=== PATIENT | male | born 1965 | race Caucasian/White ===

== ENCOUNTER 2017-02-25 22:13 | Inpatient (IN) | payer MEDICARE, MEDICAID ==
[~2017-02-25] VITALS: Ht 182.9 cm; Wt 92.2 kg
[~2017-02-25 22:13] MED LIST: BENZ2TAB PO; DEPA500T3 PO; FENO54TA PO; HALO100I IM; PRED20 PO; SERT-132 PO; TRAZ100T4 PO; VENTAER INH; ZITH500T PO
[2017-02-25 22:30] VITALS: BP 123/63; PULSE 78; RESP 28; TEMP 101.8; O2SAT 92
[2017-02-25 22:32] VITALS: BP 123/96; PULSE 77; RESP 23; TEMP 101.8; O2SAT 97
[2017-02-25] MEDS ORDERED: SODIUM CHLOR 0.9% 1000 ML INJ 1,000 ML IV ONE ×2 (22:45)
[2017-02-25] MEDS ORDERED: ACETAMINOPHEN 325 MG TAB PO ONE (22:45)
[2017-02-25] MEDS ORDERED: SODIUM CHLORIDE 0.9% FLUSH 10 ML FLUSH IVF PRN (22:45)
--- NOTE | 2017-02-25 22:46 | PD ---
HPI Chief Complaint: Fever Time Seen by Provider: 22:23 Travel History International Travel<30 days: No Contact w/Intl Traveler<30days: No Traveled to known affect area: No History of Present Illness HPI 51yo M with PMH of schizoaffective disorder, bipolar disorder presents from alf with c/o cough, fever, and mild sob for 3 days. Denies any chest pain, n/v, abdominal pain, focal weakness or numbness. Pt had pneumonia 5 months ago. PFSH Past Medical History Arthritis: Yes (knees) Asthma: Yes (as a kid) Autoimmune Disease: No Bipolar Disorder: Yes Anxiety: No Depression: No Heart Rhythm Problems: No Cancer: No High Cholesterol: No Chemotherapy: No Chest Pain: No Congestive Heart Failure: No COPD: Yes Cerebrovascular Accident: No Diabetes: No Diminished Hearing: No Endocrine: No GERD: Yes Genitourinary: No Hiatal Hernia: No Immune Disorder: No Kidney Stones: No Musculoskeletal: Yes Neurologic: Yes Psychiatric: No Reproductive: Yes Respiratory: Yes Migraines: No Radiation Therapy: No Renal Failure: No Schizophrenia: Yes (Schizo Affective) Seizures: No Sickle Cell Disease: No Sleep Apnea: No Thyroid Disease: No Ulcer: No Tetanus Vaccination: Unknown Past Surgical History Surgical History: No Previous Surgery Abdominal Surgery: No AICD: No Arteriovenous Shunt: No Cardiac Surgery: No Ear Surgery: No Endocrine Surgery: No Eye Surgery: No Genitourinary Surgery: No Gynecologic Surgery: No Insulin Pump: No Joint Replacement: No Oral Surgery: No Pacemaker: No Thoracic Surgery: No Tonsillectomy: Yes Social History Alcohol Use: No Tobacco Use: Yes Substance Use: No Allergies-Medications (Allergen,Severity, Reaction): Coded Allergies: No Known Allergies (Unverified , 10/01/16) Reported Meds & Prescriptions Reported Meds & Active Scripts Active Ventolin Hfa 18 GM Inh (Albuterol Sulfate) 90 Mcg/Act Aer 2 Puff INH Q4-6H PRN Reported Trazodone (Trazodone HCl) 100 Mg Tab 100 Mg PO HS Sertraline (Sertraline HCl) 50 Mg Tab 50 Mg PO HS Haloperidol Decanoate Inj (Haloperidol Decanoate) 100 Mg/Ml Inj 100 Mg IM Q21D Fenofibrate 54 Mg Tab 54 Mg PO DAILY Depakote ER (Divalproex Sodium) 500 Mg Rosio 500 Mg PO HS Benztropine (Benztropine Mesylate) 2 Mg Tab 2 Mg PO HS Review of Systems Except as stated in HPI: all other systems reviewed are Neg Physical Exam Narrative GENERAL: 51yo M in mild distress. SKIN: Focused skin assessment warm/dry. HEAD: Atraumatic. Normocephalic. CARDIOVASCULAR: Regular rate and rhythm. No murmur appreciated. RESPIRATORY: No accessory muscle use. Clear to auscultation. Breath sounds equal bilaterally. GASTROINTESTINAL: Abdomen soft, non-tender, nondistended. No rebound tenderness or guarding. MUSCULOSKELETAL: No obvious deformities. No clubbing. No cyanosis. No edema. NEUROLOGICAL: Awake and alert. No obvious cranial nerve deficits. Motor grossly within normal limits. Normal speech. PSYCHIATRIC: Appropriate mood and affect; insight and judgment normal. Data Data Last Documented VS Vital Signs Date Time Temp Pulse Resp B/P Pulse Ox O2 Delivery O2 Flow Rate FiO2 02/26/17 00:22 Nasal Cannula 02/26/17 00:21 77 26 129/74 94 02/25/17 23:56 99.6 2 Orders Complete Blood Count With Diff (02/25/17 22:41) Basic Metabolic Panel (Bmp) (02/25/17 22:41) Act Partial Throm Time (Ptt) (02/25/17 22:41) Prothrombin Time / Inr (Pt) (02/25/17 22:41) Ckmb (Isoenzyme) Profile (02/25/17 22:41) Troponin I (02/25/17 22:41) Blood Culture (02/25/17 22:41) Iv Access Insert/Monitor (02/25/17 22:41) Electrocardiogram (02/25/17 22:41) Ecg Monitoring (02/25/17 22:41) Oximetry (02/25/17 22:41) Oxygen Administration (02/25/17 22:41) Chest, Single Ap (02/25/17 22:41) Sodium Chloride 0.9% Flush (Ns Flush) (02/25/17 22:45) Lactic Acid Sepsis Protocol (02/25/17 22:41) Sodium Chlor 0.9% 1000 Ml Inj (Ns 1000 M (02/25/17 22:45) Sodium Chlor 0.9% 1000 Ml Inj (Ns 1000 M (02/25/17 22:45) Acetaminophen (Tylenol) (02/25/17 22:45) CKMB (02/25/17 22:50) CKMB% (02/25/17 22:50) Arterial Blood Gas (Abg) (02/26/17 00:07) Methylprednisolone So Succ Inj (Solumedr (02/26/17 00:15) Albuterol-Ipratropium Neb (Duoneb Neb) (02/26/17 00:15) Labs Laboratory Tests Test 02/25/17 02/26/17 22:50 00:20 White Blood Count 6.6 TH/MM3 Red Blood Count 4.82 MIL/MM3 Hemoglobin 14.8 GM/DL Hematocrit 42.4 % Mean Corpuscular Volume 88.0 FL Mean Corpuscular Hemoglobin 30.7 PG Mean Corpuscular Hemoglobin 34.9 % Concent Red Cell Distribution Width 13.6 % Platelet Count 203 TH/MM3 Mean Platelet Volume 9.6 FL Neutrophils (%) (Auto) 73.1 % Lymphocytes (%) (Auto) 6.3 % Monocytes (%) (Auto) 17.8 % Eosinophils (%) (Auto) 0.2 % Basophils (%) (Auto) 2.6 % Neutrophils # (Auto) 4.8 TH/MM3 Lymphocytes # (Auto) 0.4 TH/MM3 Monocytes # (Auto) 1.2 TH/MM3 Eosinophils # (Auto) 0.0 TH/MM3 Basophils # (Auto) 0.2 TH/MM3 CBC Comment DIFF FINAL Differential Comment Prothrombin Time 11.5 SEC Prothromb Time International 1.0 RATIO Ratio Activated Partial 33.8 SEC Thromboplast Time Lactic Acid Level 1.0 mmol/L Sodium Level 135 MEQ/L Potassium Level 4.5 MEQ/L Chloride Level 103 MEQ/L Carbon Dioxide Level 21.9 MEQ/L Anion Gap 10 MEQ/L Blood Urea Nitrogen 12 MG/DL Creatinine 0.92 MG/DL Estimat Glomerular Filtration 87 ML/MIN Rate Random Glucose 79 MG/DL Calcium Level 8.4 MG/DL Total Creatine Kinase 202 U/L Creatine Kinase MB LESS THAN 0.5 NG/ML Troponin I LESS THAN 0.02 NG/ML Blood Gas Puncture Site RT RADIAL Blood Gas Patient Temperature 98.6 Blood Gas HCO3 19 mmol/L Blood Gas Base Excess -5.1 mmol/L Blood Gas Oxygen Saturation 87 % Arterial Blood pH 7.42 Arterial Blood Partial 30 mmHg Pressure CO2 Arterial Blood Partial 59 mmHG Pressure O2 Arterial Blood Oxygen Content 16.5 Vol % Arterial Blood 4.6 % Carboxyhemoglobin Arterial Blood Methemoglobin 0.6 % Blood Gas Hemoglobin 13.4 G/DL Oxygen Delivery Device ROOM AIR Blood Gas Inspired Oxygen 21 % [facility] Medical Decision Making Medical Screen Exam Complete: Yes Emergency Medical Condition: Yes Interpretation(s) EKG: NSR 83bpm. Poor baseline. No ST segment elevation or depression. Differential Diagnosis Pneumonia vs. COPD exacerbation vs. ACS Narrative Course 51yo M with sob, fever and cough. Labs reviewed, no leukocytosis. Lactic acid 1.0. Troponin negative. CXR showed no acute cardiopulmonary disease. Pt initially febrile and is now afebrile after acetaminophen. Pt reevaluated at bedside and feels better. Initially, he did not have wheezing but he does have expiratory wheezing bilaterally on exam and he is a chronic cig smoker so will give duonebs x3, methylprednisolone and reevaluate. ABG on room air showed O2 sat of 87% and pO2 of 59. Pt is hypoxic but is doing well on nasal cannula 2 L. Pt is still tachypneic in the high 20s and still has expiratory wheezing. Pt states he feels better. Discussed with [facility] hospitalist DEMI and accepted to Dr. Hernandez's service. Diagnosis Primary Impression: COPD exacerbation Admitting Information Admitting Physician Requests: Katie Roque DO Feb 25, 2017 22:46
--- NOTE | 2017-02-25 22:54 | RADRPT ---
EXAM DATE/TIME: 02/25/2017 22:39 [place] COMPARISON: CHEST SINGLE AP, October 01, 2016, 4:52. INDICATIONS : Cough and fever for the past three days. MEDICAL HISTORY : None. SURGICAL HISTORY : None. ENCOUNTER: Initial ACUITY: 3 days PAIN SCORE: 0/10 LOCATION: Bilateral chest FINDINGS: The lungs are clear without infiltrate, nodule, or mass. There is no appreciable pleural effusion fo r technique. Heart and mediastinum are unremarkable. CONCLUSION: No acute cardiopulmonary disease. Erick Magallanes MD on February 25, 2017 at 22:52 Board Certified Radiologist. This report was verified electronically.
[2017-02-25 23:18] VITALS: BP 111/62; PULSE 77; RESP 22; O2SAT 96
[2017-02-25 23:19] VITALS: O2SAT 96
[2017-02-25 23:37] LABS: AUTOMATED NEUTROPHIL # 4.8 TH/MM3 (1.8-7.7); BASOPHIL # 0.2 TH/MM3 (0-0.2); BASOPHIL % 2.6 % (0.0-2.0); EOSINOPHIL % 0.2 % (0.0-4.0); HEMATOCRIT 42.4 % (39.0-51.0); HEMO FLAGS DIFF FINAL; LYMPH % 6.3 % (9.0-44.0); LYMPHOCYTE # 0.4 TH/MM3 (1.0-4.8); MEAN CORPUSCULAR HEMOGLOBIN 30.7 PG (27.0-34.0); MEAN CORPUSCULAR HGB CONC 34.9 % (32.0-36.0); MONO % 17.8 % (0.0-8.0); NEUT % 73.1 % (16.0-70.0); PLATELET COUNT 203 TH/MM3 (150-450); RED BLOOD COUNT 4.82 MIL/MM3 (4.50-5.90); RED CELL DISTRIBUTION WIDTH 13.6 % (11.6-17.2); WHITE BLOOD COUNT 6.6 TH/MM3 (4.0-11.0)
[2017-02-25 23:38] VITALS: BP 119/62; PULSE 86; RESP 22; TEMP 99.6; O2SAT 96
[2017-02-25 23:53] LABS: APTT (PATIENT) 33.8 SEC (24.3-30.1); PROTHROMBIN TIME - PATIENT 11.5 SEC (9.8-11.6)
[2017-02-25 23:55] LABS: ANION GAP 10 MEQ/L (5-15); BICARBONATE 21.9 MEQ/L (21.0-32.0); BLOOD UREA NITROGEN 12 MG/DL (7-18); CHLORIDE 103 MEQ/L (98-107); CREATINE KINASE 202 U/L (39-308); GLOMERULAR FILTRATION RATE 87 ML/MIN (>89); SODIUM (NA) 135 MEQ/L (136-145)
[2017-02-25 23:56] VITALS: BP 119/62; PULSE 87; RESP 24; TEMP 99.6; O2SAT 97
[2017-02-25 23:56] LABS: POTASSIUM 4.5 MEQ/L (3.5-5.1)
[2017-02-26] VITALS (9 sets, daily range): BP systolic 123–143; BP diastolic 58–74; PULSE 62–77; RESP 16–26; TEMP 98.2–98.9; O2SAT 90–97
[2017-02-26 00:08] LABS: CKMB LESS THAN 0.5 NG/ML (0.5-3.6)
[2017-02-26] MEDS ORDERED: methylPREDNISolone SOD SUCC 125 MG/2 ML VIAL IVP ONE (00:15)
[2017-02-26] MEDS: RESP: ALBUTEROL 2.5 MG/IPRATROPIUM 0.5 MG NEB (SCH) INH (00:21)
[2017-02-26 00:32] LABS: BLOOD GAS BASE EXCESS -5.1 mmol/L (-2-2); BLOOD GAS CARBOXYHEMOGLOBIN 4.6 % (0-4); BLOOD GAS HCO3 19 mmol/L (22-26); BLOOD GAS METHEMOGLOBIN 0.6 % (0-2); BLOOD GAS O2 HGB SATURATION 87 % (90-100); BLOOD GAS OXYGEN CONTENT 16.5 Vol % (12.0-20.0); BLOOD GAS PCO2 30 mmHg (38-42); BLOOD GAS PO2 59 mmHG (61-120); BLOOD GAS TOTAL HGB 13.4 G/DL (12.0-16.0); CRITICAL VALUE YES; DRAW SITE RT RADIAL; FIO2 21 %; NUMBER OF ARTERIAL PUNCTURES 1; OXYGEN DEVICE ROOM AIR; STAT YES; TEMP CORR TO 98.6; ULNAR PULSE PRESENT
[2017-02-26] MEDS ORDERED: ACETAMINOPHEN 325 MG TAB PO PRN (02:30)
[2017-02-26] MEDS ORDERED: RESP: ALBUTEROL 2.5 MG/IPRATROPIUM 0.5 MG NEB (PRN) NEB (02:30)
[2017-02-26] MEDS ORDERED: ONDANSETRON HCL 4 MG/2 ML VIAL IVP PRN (02:30)
[2017-02-26] MEDS ORDERED: SODIUM CHLORIDE 0.9% FLUSH 10 ML FLUSH IV FLUSH PRN (02:30)
[2017-02-26] MEDS ORDERED: NALOXONE HCL 0.4 MG/ML AMP IV PRN (02:30)
[2017-02-26] MEDS: cefTRIAXone INJ 1,000 MG in SODIUM CHLORIDE 0.9% INJ 100 ML IV SCH (02:51)
[2017-02-26] MEDS: AZITHROMYCIN INJ 500 MG in SODIUM CHLOR 0.9% 250 ML INJ 250 ML IV SCH (02:52)
[2017-02-26] MEDS: ENOXAPARIN SODIUM 40 MG/0.4 ML SYRINGE SQ SCH (06:52)
[2017-02-26] MEDS: RESP: ALBUTEROL 2.5 MG/IPRATROPIUM 0.5 MG NEB (SCH) NEB ×4 (07:23→19:31)
[2017-02-26] MEDS: FENOFIBRATE 48 MG TAB PO SCH (09:24)
[2017-02-26] MEDS: methylPREDNISolone SOD SUCC 40 MG/1 ML VIAL IV PUSH SCH ×2 (09:24→21:28)
[2017-02-26] MEDS: SODIUM CHLORIDE 0.9% FLUSH 10 ML FLUSH IV FLUSH SCH ×2 (09:28→21:27)
--- NOTE | 2017-02-26 11:57 | MH ---
DATE OF ADMISSION: 02/26/2017 ADMITTING PHYSICIAN: MONTY BRANDON MD. CHIEF COMPLAINT: Shortness of breath and fever. HISTORY OF PRESENT ILLNESS: The patient is a 51-year-old white male with past medical history significant for schizoaffective disorder, bipolar disorder who presents from a detention with complaints of cough, fever and mild shortness of breath for three days. He denies any chest pain, nausea or vomiting, abdominal pain, focal weakness or numbness. Per the patient, he had pneumonia five months ago. In the emergency room, he was noted to have a temperature of 99.6 and arterial blood gases on room air showed oxygen sat of 87% and a p02 of 59. Because of the patient's symptoms and his abnormal labs, he has been admitted for further evaluation and treatment. PAST MEDICAL HISTORY: 1. Arthritis. 2. Asthma as a kid. 3. Bipolar disorder. 4. Arthralgias. PAST SURGICAL HISTORY: 1. Tonsillectomy. ALLERGIES: NO KNOWN ALLERGIES. SOCIAL HISTORY: Smokes half to one pack per day. Lives in a detention. FAMILY HISTORY: Unremarkable. ACTIVE MEDICATIONS: 1. Trazodone. 2. Sertraline. 3. Haloperidol. 4. Fenofibrate. 5. Depakote ER. 6. Benztropine. REVIEW OF SYSTEMS: Positive for shortness of breath, fever, cough. No chest pain. No palpitations. No nausea or vomiting or diarrhea. PHYSICAL EXAMINATION: GENERAL: A 51-year-old white male who is lying in bed comfortably in no acute distress at the time of examination. VITAL SIGNS: Blood pressure is 129/74, pulse is 77, respirations are 26, pulse oximetry is 94% on two liters. HEAD, EYES, EARS, NOSE, THROAT: Head is normocephalic and atraumatic. Pupils equal, round and reactive to light and accommodation. Extraocular movements are intact. Oral mucosa is moist. NECK: The neck is supple. No jugular venous distention. LUNGS: Clear to auscultation bilaterally. Breath sounds equal bilaterally. No accessory muscle use. CARDIOVASCULAR: S1 and S2 heard. Regular rate and rhythm. No murmur. No gallop. ABDOMEN: The abdomen is soft, nontender and nondistended. Bowel sounds heard in all the four quadrants. No organomegaly. EXTREMITIES: No cyanosis, congestion or edema. NEUROLOGIC: Cranial nerves II through XII are grossly intact. No focal deficits. PSYCHIATRIC: Appropriate mood and affect. DIAGNOSTIC STUDIES: Labs show a white blood cell count of 6.6, hemoglobin 14.8, hematocrit 42.4, platelets 203,000. Lactic acid is 1.0. Potassium is 4.5, BUN is 12, creatinine is 0.92. Troponin I is less than 0.02. ABGs show blood pH of 7.42, bicarbonate is 19, p02 is 59, pC02 is 13. IMAGING STUDIES: Chest x-ray shows no infiltrates. EKG is normal sinus rhythm at 83 beats. No S-T or T-wave changes. DIAGNOSTIC IMPRESSION: 1. COPD exacerbation. 2. Hypoxia. 3. History of asthma. 4. Schizoaffective disorder. PLAN: 1. The patient has been admitted. 2. Will start the patient on oxygen two liters via nasal cannula. 3. Keep the pulse oximetry above 92%. 4. Will start the patient on Rocephin and azithromycin. 5. Will do DuoNebs q. 6 hours PRN while awake. 6. Will continue the home medications as appropriate. 7. Will do DVT prophylaxis with Lovenox. 8. GI prophylaxis with proton pump inhibitor. 9. Will also start the patient on steroids. 10. Will monitor the CBC and the basic metabolic profile closely. 11. Will monitor the patient closely during the hospital stay. Further management depends upon the hospital course. The patient has presented with hypoxia and COPD exacerbations and needs IV antibiotics and IV steroids as well as DuoNeb treatments q. 6 hours. The patient meets inpatient criteria of three midnights. If not admitted, the risks of respiratory failure are there. Anticipate discharge to detention when stable. BRIELLE
[2017-02-26] MEDS: DIVALPROEX SODIUM E.R. 500 MG TAB PO SCH (21:28)
[2017-02-26] MEDS: traZODone HCL 100 MG TAB PO SCH (21:28)
[2017-02-26] MEDS: SERTRALINE HCL 50 MG TAB PO SCH (21:29)
[2017-02-26] MEDS: BENZTROPINE MESYLATE 2 MG TAB PO SCH (21:29)
--- NOTE | 2017-02-26 22:28 | EKG ---
Date Performed: 02/25/2017 Time Performed: 22:57:26 PTAGE: 51 years EKG: Sinus rhythm INDETERMINATE AXIS ABNORMAL ECG PREVIOUS TRACING : 12/11/2013 16.20 Compared to prior tracing no significant change DOCTOR: Nick Su Interpretating Date/Time 02/26/2017 22:27:23
[2017-02-27] VITALS (7 sets, daily range): BP systolic 117–153; BP diastolic 57–79; PULSE 65–79; RESP 17–21; TEMP 98–98.5; O2SAT 90–98
[2017-02-27] MEDS: cefTRIAXone INJ 1,000 MG in SODIUM CHLORIDE 0.9% INJ 100 ML IV SCH (03:35)
[2017-02-27] MEDS: AZITHROMYCIN INJ 500 MG in SODIUM CHLOR 0.9% 250 ML INJ 250 ML IV SCH (03:39)
[2017-02-27] MEDS: ENOXAPARIN SODIUM 40 MG/0.4 ML SYRINGE SQ SCH (06:02)
[2017-02-27] MEDS: RESP: ALBUTEROL 2.5 MG/IPRATROPIUM 0.5 MG NEB (SCH) NEB ×4 (07:54→20:06)
[2017-02-27] MEDS: FENOFIBRATE 48 MG TAB PO SCH (10:02)
[2017-02-27] MEDS: SODIUM CHLORIDE 0.9% FLUSH 10 ML FLUSH IV FLUSH SCH ×2 (10:03→21:52)
[2017-02-27] MEDS: methylPREDNISolone SOD SUCC 40 MG/1 ML VIAL IV PUSH SCH (10:03)
--- NOTE | 2017-02-27 12:32 | HHI.PR ---
Subjective Remarks resting in bed afebrile this am cough, dry, COPD tobacco abuse no family (Autumn Cosby) Objective Objective Results - Vital Signs Date Time Temp Pulse Resp B/P Pulse Ox O2 Delivery O2 Flow Rate FiO2 02/27/17 12:05 98.5 65 17 122/57 90 02/27/17 07:55 98.2 73 18 117/61 92 02/27/17 05:04 98.4 72 21 120/79 98 02/27/17 00:23 98.2 66 18 147/70 97 02/26/17 21:22 98.4 66 18 126/58 92 02/26/17 19:30 95 Nasal Cannula 2.00 02/26/17 16:49 98.9 70 20 129/60 91 I/O 02/26/17 02/26/17 02/26/17 02/27/17 02/27/17 02/27/17 07:00 15:00 23:00 07:00 15:00 23:00 Output Total 800 ml Balance -800 ml Output Urine Total 800 ml (Autumn Cosby) Result Diagram: 02/25/17224902/25/170 ROS General: Weakness (occasional, improved today), Other (10 point ROS done) Pulmonary: Cough, SOB (exertional), Other (copd) GI: BM (today) (Autumn Cosby) Physical Exam Physical Exam PHYSICAL EXAMINATION GENERAL: This is a well-developed, well-nourished male who appears to be in no acute distress. He is alert and awake, HEAD: Normocephalic without any lesion or mass noted. Facial features appear symmetric. OROPHARYNGEAL: Oropharynx without erythema or edema. NECK: Supple. No nuchal rigidity or lymphadenopathy. Trachea midline without deviation. CARDIAC: Regular rhythm, regular rate, S1 and S2 are heard. LUNGS: diminished to auscultation bilaterally. no wheeze, no rhonchi No use of accessory muscles on inspiration or expiration. ABDOMEN: Soft, nontender, no organomegaly or masses. Bowel sounds are heard in all four quadrants. No rebound. No guarding. EXTREMITIES: no edema. Pulses equal bilateral. NEUROLOGICAL: Patient mood and affect appropriate. No focal deficit SKIN:Warm and moist Objective Remarks Im better today (Autumn Cosby) A/P Assessment and Plan 1. COPD exacerbation. 2. Hypoxia. 3. History of asthma. 4. Schizoaffective disorder. PLAN: Will start the patient on oxygen two liters via nasal cannula. duonebs Keep the pulse oximetry above 92%. Rocephin and azithromycin. IV IV steroids decreased today Will eval SOB and needs in the am. DC planning possible in am. continue the home medications as appropriate. Will do DVT prophylaxis with Lovenox. GI prophylaxis with proton pump inhibitor. (Autumn Cosby) Assessment and Plan pt is seen & examined d/w PT d/w autumn bourgeois w above change abx to po taper steroids ss for d.c planning will f/u (Trinity William MD) Autumn Cosyb February 27, 2017 12:32 Trinity William MD February 27, 2017 17:33
[2017-02-27] MEDS: BENZTROPINE MESYLATE 2 MG TAB PO SCH (21:52)
[2017-02-27] MEDS: SERTRALINE HCL 50 MG TAB PO SCH (21:52)
[2017-02-27] MEDS: traZODone HCL 100 MG TAB PO SCH (21:52)
[2017-02-27] MEDS: DIVALPROEX SODIUM E.R. 500 MG TAB PO SCH (21:52)
[2017-02-28 04:40] VITALS: BP 116/66; PULSE 56; RESP 16; TEMP 98.8; O2SAT 91
[2017-02-28] MEDS: ENOXAPARIN SODIUM 40 MG/0.4 ML SYRINGE SQ SCH (06:09)
[2017-02-28 07:46] VITALS: BP 83/48; PULSE 69; RESP 17; TEMP 99.5; O2SAT 92
[2017-02-28 07:47] VITALS: O2SAT 94
[2017-02-28] MEDS: RESP: ALBUTEROL 2.5 MG/IPRATROPIUM 0.5 MG NEB (SCH) NEB (07:51)
--- NOTE | 2017-02-28 08:13 | HHI.PR ---
Subjective Remarks resting in bed Temp 99 5 low-grade Alert responds cough, dry, COPD O2 on continuous, taken off to room air for trial tobacco abuse no family (Autumn Cosby) Objective Objective Results - Vital Signs Date Time Temp Pulse Resp B/P Pulse Ox O2 Delivery O2 Flow Rate FiO2 02/28/17 07:47 94 21 02/28/17 07:46 99.5 69 17 83/48 92 02/28/17 04:40 98.8 56 16 116/66 91 02/27/17 20:07 93 Nasal Cannula 2.00 02/27/17 20:04 98.0 70 18 153/61 94 02/27/17 15:37 98.5 79 20 130/62 92 02/27/17 12:05 98.5 65 17 122/57 90 I/O 02/27/17 02/27/17 02/27/17 02/28/17 02/28/17 02/28/17 07:00 15:00 23:00 07:00 15:00 23:00 Intake Total 600 ml 800 ml 480 ml Output Total 300 ml Balance 300 ml 800 ml 480 ml Intake Oral 600 ml 800 ml 480 ml Output Urine Total 300 ml # Voids 0 4 3 # Bowel Movements 0 (Autumn Cosby) Result Diagram: 02/25/17224902/25/170 ROS General: Fatigue (mild), Other (10 point ROS done positives noted in a system assessment otherwise unremarkable) Pulmonary: Cough (dry hacky, tickle in back of throat), SOB (none) Neuro/MS: Other (calm affect) (Autumn Cosby) Physical Exam Physical Exam PHYSICAL EXAMINATION GENERAL: This is a well-developed, well-nourished male who appears to be in no acute distress, occasional cough. He is alert and awake, HEAD: Normocephalic without any lesion or mass noted. Facial features appear symmetric. OROPHARYNGEAL: Oropharynx without erythema or edema. NECK: Supple. No nuchal rigidity or lymphadenopathy. Trachea midline without deviation. CARDIAC: Regular rhythm, regular rate, S1 and S2 are heard. LUNGS: Clear to auscultation bilaterally. no wheeze, no rhonchi No use of accessory muscles on inspiration or expiration. Using O2 continuously ABDOMEN: Soft, nontender, no organomegaly or masses. Bowel sounds are heard in all four quadrants. No rebound. No guarding. EXTREMITIES: No edema. Pulses equal bilateral. NEUROLOGICAL: Patient mood and affect appropriate to verbal stimuli SKIN:Warm and moist Objective Remarks I hope I get to go home today (Autumn Cosby) A/P Assessment and Plan 1. COPD exacerbation. 2. Hypoxia. 3. History of asthma. 4. Schizoaffective disorder. PLAN: oxygen two liters via nasal cannula. Has been continuous, placed on room air this a.m. for evaluation duoneadalberto Keep the pulse oximetry above 92%, O2 sat having an right at 92 range Rocephin and azithromycin. IV IV steroids changed to PO Dry cough nonproductive DC planning evaluated for possible today No shortness of breath noted, lung sounds with air movement and no wheezing noted If O2 sat decreases may need to evaluate walk test Will do DVT prophylaxis with Lovenox. GI prophylaxis with proton pump inhibitor. Discussed With: Nurse, Family, Other (Dr. william, seen on his behalf) (Autumn Cosby) Assessment and Plan PT IS SEEN & EXAMINED feels much better breathing is much better mill cough /dry & non productive eager to go back "home" faint rhonchi on auscultation d/w pt d/w autumn medically stable for dc d/c back to half-way stop smoking cigarettes see see RADHA form f/u pcp (Trinity William MD) Autumn Cosby February 28, 2017 08:13 Trinity William MD February 28, 2017 09:08
[2017-02-28] MEDS ORDERED: methylPREDNISolone SOD SUCC 40 MG/1 ML VIAL IV PUSH SCH (09:00)
[2017-02-28] MEDS ORDERED: AZITHROMYCIN 250 MG TAB PO SCH (09:00)
[2017-02-28] MEDS: FENOFIBRATE 48 MG TAB PO SCH (09:00)
[2017-02-28] MEDS ORDERED: predniSONE 20 MG TAB PO SCH (09:00)
[2017-02-28 09:15] VITALS: BP 122/74
[2017-02-28] MEDS ORDERED: MEDR4PAK PO (09:17)
[2017-02-28] MEDS ORDERED: AZIT250T3 PO (09:17)
[2017-02-28] MEDS ORDERED: BENZ100 PO (09:17)
--- NOTE | 2017-02-28 16:14 | HHI.DS ---
Discharge Summary Admission Date Feb 26, 2017 at 11:27 Discharge Date: February 28, 2017 Admitting Diagnosis COPD exacerbation Brief History The patient was a 51-year-old white male with past medical history significant for schizoaffective disorder, bipolar disorder who presented from a skilled nursing with complaints of cough, fever and mild shortness of breath for three days. He denied any chest pain, nausea or vomiting, abdominal pain, focal weakness or numbness. Per the patient, he had pneumonia five months ago. CBC/BMP: 02/25/17 2250 02/25/17 2250 Significant Findings Laboratory Tests Test 02/25/17 02/26/17 22:50 00:20 Neutrophils (%) (Auto) 73.1 % (16.0-70.0) Lymphocytes (%) (Auto) 6.3 % (9.0-44.0) Monocytes (%) (Auto) 17.8 % (0.0-8.0) Basophils (%) (Auto) 2.6 % (0.0-2.0) Lymphocytes # (Auto) 0.4 TH/MM3 (1.0-4.8) Monocytes # (Auto) 1.2 TH/MM3 (0-0.9) Activated Partial 33.8 SEC Thromboplast Time (24.3-30.1) Sodium Level 135 MEQ/L (136-145) Estimat Glomerular Filtration 87 ML/MIN (>89) Rate Calcium Level 8.4 MG/DL (8.5-10.1) Creatine Kinase MB LESS THAN 0.5 NG/ML (0.5-3.6) Troponin I LESS THAN 0.02 NG/ML (0.02-0.05) Blood Gas HCO3 19 mmol/L (22-26) Blood Gas Base Excess -5.1 mmol/L (-2-2) Blood Gas Oxygen Saturation 87 % (90-100) Arterial Blood Partial 30 mmHg (38-42) Pressure CO2 Arterial Blood Partial 59 mmHG Pressure O2 (61-120) Arterial Blood 4.6 % (0-4) Carboxyhemoglobin PE at Discharge GENERAL: This was a well-developed, well-nourished male who appeared to be in no acute distress, occasional cough. He was alert and awake, HEAD: Normocephalic without any lesion or mass noted. Facial features appear symmetric. OROPHARYNGEAL: Oropharynx without erythema or edema. NECK: Supple. No nuchal rigidity or lymphadenopathy. Trachea midline without deviation. CARDIAC: Regular rhythm, regular rate, S1 and S2 are heard. LUNGS: Clear to auscultation bilaterally. no wheeze, no rhonchi No use of accessory muscles on inspiration or expiration. Using O2 continuously ABDOMEN: Soft, nontender, no organomegaly or masses. Bowel sounds are heard in all four quadrants. No rebound. No guarding. EXTREMITIES: No edema. Pulses equal bilateral. NEUROLOGICAL: Patient mood and affect appropriate to verbal stimuli SKIN:Warm and moist Hospital Course In the emergency room, he was noted to have a temperature of 99.6 and arterial blood gases on room air showed oxygen sat of 87% and a p02 of 59. Because of the patient's symptoms and his abnormal labs, he has been admitted for further evaluation and treatment. These are the diagnoses that were used to treat the patient during this brief hospital stay. 1. COPD exacerbation. 2. Hypoxia. 3. History of asthma. 4. Schizoaffective disorder. PLAN of care included oxygen two liters via nasal cannula. Has been continuous, placed on room air this a.m. of discharge for evaluation duonebs every 6 as needed Keep the pulse oximetry above 92%, O2 sat having an right at 92 range Rocephin and azithromycin. IV initiated on admission and throughout hospital stay, up until day of discharge IV steroids were initially started on day of admission , but changed to PO day of discharge Dry cough nonproductive, throughout hospital stay. Vital signs were monitored every 4 throughout hospital stay, any abnormals were noted and treated Home meds were reconciled, On day of discharge No shortness of breath noted, lung sounds with air movement and no wheezing noted If O2 sat decreases may need to evaluate walk test, but patient remained stable with O2 sat Will do DVT prophylaxis with Lovenox. GI prophylaxis with proton pump inhibitor. Throughout hospital stay and margo also saw patient a.m. of discharge PT IS SEEN & EXAMINED feels much better breathing is much better mill cough /dry & non productive eager to go back "home" faint rhonchi on auscultation d/w pt d/w autumn medically stable for dc d/c back to skilled nursing stop smoking cigarettes see MRS see INTERMEDIATE form Pt Condition on Discharge: Stable Discharge Disposition: ACLF/INTERMEDIATE Discharge Instructions DIET: Follow Instructions for: As Tolerated, No Restrictions Additional Diet Instructions: no smoking cigarettes Fluid Restrictions: none Activities you can perform: Regular-No Restrictions Follow up Referrals: PCP Follow-up - 1 Week New Medications: Benzonatate (Tessalon Perles) 100 Mg Cap 100 MG PO TID PRN COUGH #20 Ref 0 CAP Methylprednisolone Dosepak (Medrol Dosepak) 4 Mg Dspk 4 MG PO DIRECTED Per Pharmacist direction #1 Ref 0 DSPK Azithromycin (Azithromycin) 250 Mg Tab 500 MG PO DAILY brochitis #10 TAB Continued Medications: Albuterol 18 GM Inh (Ventolin Hfa 18 GM Inh) 90 Mcg/Act Aer 2 PUFF INH Q4-6H PRN SHORTNESS OF BREATH #1 Ref 0 INHALER Benztropine (Benztropine) 2 Mg Tab 2 MG PO HS #30 Ref 0 TAB Divalproex ER (Depakote ER) 500 Mg Rosio 500 MG PO HS Control Seizures #30 Ref 0 TAB Fenofibrate (Fenofibrate) 54 Mg Tab 54 MG PO DAILY #30 Ref 0 TAB Haloperidol Decanoate Inj (Haloperidol Decanoate Inj) 100 Mg/Ml Inj 100 MG IM Q21D Schizophrenia #1 Ref 0 VIAL Sertraline (Sertraline) 50 Mg Tab 50 MG PO HS #30 Ref 0 TAB Trazodone (Trazodone) 100 Mg Tab 100 MG PO HS Control Depression #30 Ref 0 TAB Autumn Cosby February 28, 2017 16:14
== END 2017-02-28 10:31 | disposition home or self-care (01) | DRG 192 ==
LOC: NEPE 22:13 → NEDA 02-26 01:24 → NEPGCP 02-26 03:55 → OBSVTOIN 02-26 11:27
PROVIDERS: ADMIT Family Medicine; ATTEND Family Medicine
DX: J44.1 Chronic obstructive pulmonary disease with (acute) exacerbation (principal); F25.9 Schizoaffective disorder, unspecified; F31.9 Bipolar disorder, unspecified; J45.909 Unspecified asthma, uncomplicated; K21.9 Gastro-esophageal reflux disease without esophagitis; R09.02 Hypoxemia; F17.210 Nicotine dependence, cigarettes, uncomplicated; Z87.01 Personal history of pneumonia (recurrent)
CPT/HCPCS: 36600; 71010; 80048; 82550; 82552; 82805; 82948; 83605; 84484; 85025; 85610; 85730; 87040; 93005; 94640; 94664; 96361; 96374; J0456; J0696; J1650; J2920; J2930; J7030; J7050; J7512

== ENCOUNTER 2017-07-29 16:58 | Observation (INO) | payer MEDICARE, MEDICAID ==
[~2017-07-29] VITALS: Ht 182.9 cm; Wt 95.0 kg
[~2017-07-29 16:58] MED LIST changes: +AZIT250T3 PO; +BENZ100 PO; +MEDR4PAK PO; -PRED20 PO; -ZITH500T PO
[2017-07-29 17:00] VITALS: BP 163/73; PULSE 82; RESP 15; TEMP 99.2; O2SAT 98
[2017-07-29 17:17] VITALS: O2SAT 98
--- NOTE | 2017-07-29 17:23 | PD ---
HPI Chief Complaint: Respiratory Symptoms Time Seen by Provider: 17:14 Travel History International Travel<30 days: No Contact w/Intl Traveler<30days: No Traveled to known affect area: No History of Present Illness HPI 51-year-old male presents to the emergency department for evaluation of cough, shortness of breath that started approximately 1.5 weeks ago. Patient has history of schizoaffective disorder, COPD. He lives in a facility due to his schizoaffective disorder. Patient states that he is currently on azithromycin for a sinus infection. He is on day 3. He states he ran a fever last night of 101. He has not had any fever since. No abdominal pain, nausea, vomiting, diarrhea. No history DVT/PE. No leg edema. No hemoptysis. PFSH Past Medical History Arthritis: Yes (knees) Asthma: Yes (as a kid) Autoimmune Disease: No Bipolar Disorder: Yes Anxiety: No Depression: No Heart Rhythm Problems: No Cancer: No High Cholesterol: No Chemotherapy: No Chest Pain: No Congestive Heart Failure: No COPD: Yes Cerebrovascular Accident: No Diabetes: No Diminished Hearing: No Endocrine: No Gastrointestinal Disorders: Yes GERD: Yes Genitourinary: No Headaches: Yes Hiatal Hernia: No Immune Disorder: No Kidney Stones: No Musculoskeletal: Yes Neurologic: Yes Psychiatric: No Reproductive: Yes Respiratory: Yes (COPD) Migraines: No Radiation Therapy: No Renal Failure: No Schizophrenia: Yes (Schizo Affective) Seizures: No Sickle Cell Disease: No Sleep Apnea: No Thyroid Disease: No Ulcer: No Past Surgical History Abdominal Surgery: No AICD: No Arteriovenous Shunt: No Cardiac Surgery: No Ear Surgery: No Endocrine Surgery: No Eye Surgery: No Genitourinary Surgery: No Gynecologic Surgery: No Insulin Pump: No Joint Replacement: No Oral Surgery: No Pacemaker: No Thoracic Surgery: No Tonsillectomy: Yes Other Surgery: Yes ("fatty tissue removed from scrotum" ) Social History Alcohol Use: No Tobacco Use: Yes Substance Use: No Allergies-Medications (Allergen,Severity, Reaction): Coded Allergies: pineapple (Unverified Allergy, Severe, Swelling, 06/14/17) throat mouth and tongue swelling. Reported Meds & Prescriptions Reported Meds & Active Scripts Active Reported Mapap (Acetaminophen) 325 Mg Tab 325 Mg PO TID PRN Ventolin Hfa 18 GM Inh (Albuterol Sulfate) 90 Mcg/Act Aer 2 Puff INH Q4-6H PRN Azithromycin 250 Mg Tab 250 Mg PO DIRECTED Take 2 tabs (500 mg) on day 1 then 1 tab daily x 4 days. Trazodone (Trazodone HCl) 100 Mg Tablet 100 Mg PO HS Benztropine (Benztropine Mesylate) 0.5 Mg Tab 2 Mg PO HS Anoro Ellipta Inh (Umeclidinium/Vilanterol) 62.5-25 Mcg/Act Aero 1 Puff INH DAILY Sertraline (Sertraline HCl) 50 Mg Tab 50 Mg PO HS Haloperidol Decanoate Inj (Haloperidol Decanoate) 100 Mg/Ml Inj 100 Mg IM Q21D Fenofibrate 54 Mg Tab 54 Mg PO DAILY Depakote ER (Divalproex Sodium) 500 Mg Rosio 1,500 PO HS Review of Systems Except as stated in HPI: all other systems reviewed are Neg Physical Exam Narrative GENERAL: Well-nourished, well-developed male patient, afebrile. SKIN: Focused skin assessment warm/dry. HEAD: Normocephalic. Atraumatic. EYES: No scleral icterus. No injection or drainage. NECK: Supple, trachea midline. No JVD or lymphadenopathy. CARDIOVASCULAR: Regular rate and rhythm without murmurs, gallops, or rubs. RESPIRATORY: Breath sounds equal bilaterally. No accessory muscle use. Lungs sounds with expiratory wheezes noted. Patient has dry cough noted GASTROINTESTINAL: Abdomen soft, non-tender, nondistended. MUSCULOSKELETAL: No cyanosis, or edema. BACK: Nontender without obvious deformity. No CVA tenderness. Data Data Last Documented VS Vital Signs Date Time Temp Pulse Resp B/P (MAP) Pulse Ox O2 Delivery O2 Flow Rate FiO2 07/29/17 17:17 106 17 98 Room Air 07/29/17 17:00 99.2 163/73 (103) Orders Orders Complete Blood Count With Diff (07/29/17 17:21) Basic Metabolic Panel (Bmp) (07/29/17 17:21) Magnesium (Mg) (07/29/17 17:21) Ckmb (Isoenzyme) Profile (07/29/17 17:21) Troponin I (07/29/17 17:21) Iv Access Insert/Monitor (07/29/17 17:21) Electrocardiogram (07/29/17 17:21) Ecg Monitoring (07/29/17 17:21) Oximetry (07/29/17 17:21) Oxygen Administration (07/29/17 17:21) Chest, Single Ap (07/29/17 17:21) Sodium Chloride 0.9% Flush (Ns Flush) (07/29/17 17:30) Methylprednisolone So Succ Inj (Solumedr (07/29/17 17:30) Albuterol-Ipratropium Neb (Duoneb Neb) (07/29/17 17:30) Guaifen-Dm 200-20 Mg/10 Ml Liq (Robituss (07/29/17 17:30) Valproic Acid (Depakene) (07/29/17 17:21) CKMB (07/29/17 17:25) CKMB% (07/29/17 17:25) Admit Order (Ed Use Only) (07/29/17 18:55) Labs Laboratory Tests Test 07/29/17 17:25 White Blood Count 8.5 TH/MM3 Red Blood Count 4.84 MIL/MM3 Hemoglobin 15.0 GM/DL Hematocrit 43.7 % Mean Corpuscular Volume 90.4 FL Mean Corpuscular Hemoglobin 31.1 PG Mean Corpuscular Hemoglobin Concent 34.4 % Red Cell Distribution Width 13.4 % Platelet Count 221 TH/MM3 Mean Platelet Volume 8.7 FL Neutrophils (%) (Auto) 66.7 % Lymphocytes (%) (Auto) 19.3 % Monocytes (%) (Auto) 12.5 % Eosinophils (%) (Auto) 0.2 % Basophils (%) (Auto) 1.3 % Neutrophils # (Auto) 5.7 TH/MM3 Lymphocytes # (Auto) 1.6 TH/MM3 Monocytes # (Auto) 1.1 TH/MM3 Eosinophils # (Auto) 0.0 TH/MM3 Basophils # (Auto) 0.1 TH/MM3 CBC Comment DIFF FINAL Differential Comment Blood Urea Nitrogen 15 MG/DL Creatinine 0.78 MG/DL Random Glucose 73 MG/DL Calcium Level 8.5 MG/DL Magnesium Level 1.9 MG/DL Sodium Level 139 MEQ/L Potassium Level 4.1 MEQ/L Chloride Level 111 MEQ/L Carbon Dioxide Level 21.9 MEQ/L Anion Gap 6 MEQ/L Estimat Glomerular Filtration Rate 106 ML/MIN Total Creatine Kinase 178 U/L Creatine Kinase MB 2.9 NG/ML Troponin I 0.02 NG/ML Valproic Acid (Depakene) Level 55 MCG/ML [facility] Medical Decision Making Medical Screen Exam Complete: Yes Emergency Medical Condition: Yes Medical Record Reviewed: Yes Differential Diagnosis COPD exacerbation versus pneumonia versus URI versus bronchitis Narrative Course 51-year-old male presents to the emergency department for evaluation shortness breath, cough for 1.5 weeks. He has history of COPD. Expiratory wheezes are noted throughout. Patient has significant dry cough. EKG, CBC, BMP, CK, troponin, magnesium, Depakote level are ordered and pending. Patient is given DuoNeb 3, Solu-Medrol 125 mg IV. Chest x-ray is ordered and pending. EKG shows SR, no acute ST changes. CBC shows no acute abnormality. BMP shows no acute abnormality. CK is 178. Troponin is 0.02. Magnesium is 1.9. Depakote is 55. Chest x-ray shows no acute abnormality. Patient continues to be short of breath, with an uncontrollable cough. I discussed this with my attending physician, Dr. Kwan, who recommends admission. Dr. William accepted admission. Diagnosis Primary Impression: COPD exacerbation Admitting Information Admitting Physician Requests: Oly Alejo Jul 29, 2017 17:23
[2017-07-29] MEDS ORDERED: guaiFENesin/DEXTROMETHORPHAN 200 MG/20 MG/10 ML CUP PO ONE (17:30)
[2017-07-29] MEDS ORDERED: methylPREDNISolone SOD SUCC 125 MG/2 ML VIAL IV PUSH ONE (17:30)
[2017-07-29 17:36] LABS: AUTOMATED NEUTROPHIL # 5.7 TH/MM3 (1.8-7.7); BASOPHIL # 0.1 TH/MM3 (0-0.2); BASOPHIL % 1.3 % (0.0-2.0); EOSINOPHIL % 0.2 % (0.0-4.0); HEMATOCRIT 43.7 % (39.0-51.0); HEMO FLAGS DIFF FINAL; LYMPH % 19.3 % (9.0-44.0); LYMPHOCYTE # 1.6 TH/MM3 (1.0-4.8); MEAN CELL VOLUME 90.4 FL (80.0-100.0); MEAN CORPUSCULAR HEMOGLOBIN 31.1 PG (27.0-34.0); MEAN CORPUSCULAR HGB CONC 34.4 % (32.0-36.0); MONO % 12.5 % (0.0-8.0); NEUT % 66.7 % (16.0-70.0); PLATELET COUNT 221 TH/MM3 (150-450); RED BLOOD COUNT 4.84 MIL/MM3 (4.50-5.90); RED CELL DISTRIBUTION WIDTH 13.4 % (11.6-17.2); WHITE BLOOD COUNT 8.5 TH/MM3 (4.0-11.0)
[2017-07-29] MEDS ORDERED: MAPA325T PO (17:43)
[2017-07-29] MEDS ORDERED: TRAZ100T6 PO (17:43)
[2017-07-29] MEDS ORDERED: BENZ0.5T PO (17:43)
[2017-07-29] MEDS ORDERED: VENTAER INH (17:43)
[2017-07-29] MEDS ORDERED: UMEC1AER INH (17:43)
[2017-07-29] MEDS ORDERED: AZIT250T3 PO (17:43)
--- NOTE | 2017-07-29 17:44 | RADRPT ---
EXAM DATE/TIME: 07/29/2017 17:35 [facility] COMPARISON: CHEST SINGLE AP, February 25, 2017, 22:39. INDICATIONS : Cough and shortness of breath. MEDICAL HISTORY : Chronic obstructive pulmonary disease. SURGICAL HISTORY : None. ENCOUNTER: Initial ACUITY: 2 weeks PAIN SCORE: 0/10 LOCATION: Bilateral chest FINDINGS: No new focal pleural or parenchymal opacities. Cardiomediastinal contours are within normal limits. B mabel thorax is intact. CONCLUSION: 1. No acute abnormality or significant interval change. Popeye Hemphill MD on July 29, 2017 at 17:43 Board Certified Radiologist. This report was verified electronically.
[2017-07-29] MEDS: RESP: ALBUTEROL 2.5 MG/IPRATROPIUM 0.5 MG NEB (SCH) INH (17:57)
[2017-07-29 18:07] LABS: ANION GAP 6 MEQ/L (5-15); BICARBONATE 21.9 MEQ/L (21.0-32.0); BLOOD UREA NITROGEN 15 MG/DL (7-18); CHLORIDE 111 MEQ/L (98-107); GLOMERULAR FILTRATION RATE 106 ML/MIN (>89); MAGNESIUM 1.9 MG/DL (1.5-2.5); POTASSIUM 4.1 MEQ/L (3.5-5.1); SODIUM (NA) 139 MEQ/L (136-145)
[2017-07-29 18:10] LABS: CREATINE KINASE 178 U/L (39-308)
[2017-07-29 18:23] LABS: CKMB 2.9 NG/ML (0.5-3.6)
[2017-07-29 20:19] VITALS: BP 130/58; PULSE 90; RESP 18; O2SAT 98
[2017-07-29] MEDS ORDERED: ACETAMINOPHEN 325 MG TAB PO PRN (20:45)
[2017-07-29] MEDS ORDERED: PROMETHAZINE/CODEINE 6.25 MG/10 MG/5 ML CUP PO PRN (20:45)
[2017-07-29] MEDS: DIVALPROEX SODIUM E.R. 500 MG TAB PO SCH (21:02)
[2017-07-29] MEDS: cefTRIAXone INJ 1,000 MG in SODIUM CHLORIDE 0.9% INJ 100 ML IV SCH (21:07)
[2017-07-29] MEDS: methylPREDNISolone SOD SUCC 40 MG/1 ML VIAL IV PUSH SCH ×2 (21:07→23:25)
[2017-07-29] MEDS: FAMOTIDINE 20 MG TAB PO SCH (21:11)
[2017-07-29] MEDS: ENOXAPARIN SODIUM 40 MG/0.4 ML SYRINGE SQ SCH (21:12)
[2017-07-29] MEDS: BENZTROPINE MESYLATE 1 MG TAB PO SCH (21:20)
[2017-07-29] MEDS: traZODone HCL 100 MG TAB PO SCH (21:20)
[2017-07-29] MEDS: SERTRALINE HCL 50 MG TAB PO SCH (21:20)
[2017-07-29 21:45] VITALS: O2SAT 98
[2017-07-29 22:03] VITALS: BP 140/65; PULSE 67; RESP 20; TEMP 98.2; O2SAT 95
[2017-07-29] MEDS: BENZONATATE 100 MG CAP PO PRN (23:01)
[2017-07-29 23:47] VITALS: BP 138/64; PULSE 68; RESP 20; TEMP 98.1; O2SAT 94
[2017-07-30] VITALS (8 sets, daily range): BP systolic 123–143; BP diastolic 58–67; PULSE 61–73; RESP 16–21; TEMP 97.8–98.3; O2SAT 90–94
--- NOTE | 2017-07-30 01:17 | EKG ---
Date Performed: 07/29/2017 Time Performed: 17:27:20 PTAGE: 51 years EKG: Sinus rhythm NORMAL ECG PREVIOUS TRACING : 02/25/2017 22.57 No significant change from previous tracing noted. DOCTOR: Jovi Mesa Interpretating Date/Time 07/30/2017 01:14:55
[2017-07-30] MEDS: methylPREDNISolone SOD SUCC 40 MG/1 ML VIAL IV PUSH SCH ×4 (06:36→23:48)
[2017-07-30] MEDS: BENZONATATE 100 MG CAP PO PRN ×2 (06:36→20:06)
[2017-07-30] MEDS: RESP: ALBUTEROL 2.5 MG/IPRATROPIUM 0.5 MG NEB (SCH) NEB ×4 (07:49→19:19)
[2017-07-30] MEDS ORDERED: PNEUMOCOCCAL POLYVALENT INJ 25 MCG/0.5 ML SYR IM ONE (09:00)
[2017-07-30] MEDS ORDERED: INFLUENZA VIRUS VACCINE (QUADRIVALENT) 0.5 ML SYR IM ONE (09:00)
[2017-07-30] MEDS: FAMOTIDINE 20 MG TAB PO SCH ×2 (09:14→20:07)
[2017-07-30] MEDS: FENOFIBRATE 48 MG TAB PO SCH (09:14)
[2017-07-30] MEDS: UMECLIDINIUM 62.5 MCG/VILANTEROL 25 MCG INHALER INH SCH (11:03)
--- NOTE | 2017-07-30 12:51 | MH ---
cc: DOMENICOSHAQUILLEELVIRA DATE OF ADMISSION: 07/29/2017 CHIEF COMPLAINT The patient came here complaining of cough and shortness of breath for two weeks. HISTORY OF PRESENT ILLNESS This is a pleasant 51-year-old male with longstanding history of smoking and prior history of COPD with schizoaffective disorder. The patient apparently lives in a shelter. He was brought to the hospital due to persistent cough with shortness of breath and wheezing. He reportedly has fever also. His PCP started him on oral Zithromax which he took for three days without significant improvement in his symptoms. Due to his progressive cough and shortness of breath, he was sent to the ER for evaluation. The patient reports pleuritic chest pain. He denies hemoptysis or hematemesis. He reports his cough was originally productive of sputum. However, his cough is now getting dry. He is getting coughing spells that sometimes stop him from breathing. PAST MEDICAL HISTORY 1. COPD. 2. Schizoaffective disorder. 3. Depression. 4. Arthritis. SOCIAL HISTORY He is a chronic smoker. He smokes two packs per day. He rarely drinks alcohol. There is no history of drug abuse. He lives in a shelter. ALLERGIES NO KNOWN DRUG ALLERGIES. [facility] HOME MEDICATIONS: 1. Zithromax that he took for three days. 2. Anoro Ellipta, one puff twice daily. 3. Albuterol MDI two puffs 4x a day. 4. Fenofibrate 54 milligrams daily. 5. Carvedilol daily. 6. Depakote ER 1500 milligrams p.o. q hs. 7. Zoloft 50 milligrams daily. 8. Trazodone 100 milligrams daily. 9. Haldol decanoate injection 100 milligrams per mL intramuscularly every 3 weeks. 10. Benztropine 2 milligrams. FAMILY HISTORY His mother at age 70. She was smoker and had lung cancer. Dad is 82 years old, still living. REVIEW OF SYSTEMS The patient denied headache, loss of vision, double vision. Denies change in hearing. Denies nasal congestion. Denies dysphagia, odynophagia. He had some pleuritic type chest pain, often having coughing bouts, no pain otherwise. He denies orthopnea, paroxysmal nocturnal dyspnea. No pain. He has good appetite. Denies change in bowel pattern, denies melena or bright red blood per rectum. Denies dysuria, hematuria. The remainder of the review of systems is negative for 12 systems other than what is mentioned above. PHYSICAL EXAMINATION: The patient is a middle-aged male, lying in bed, not in any acute distress, except for having intermittent spells of coughing. He is alert, oriented x3. Vital signs: Blood pressure 163/70, pulse 82, respiratory rate 15, temperature 99.2, O2 98% on examination. HEENT: Atraumatic, normocephalic. Extraocular muscles are intact. Pupils are round and reactive. No icterus or significant pallor. No oral ulcers or thrush. No throat congestion. Ears clear. Neck supple. No JVD. No bruits. RESPIRATORY: Good bilateral air entry. Scattered expiratory rhonchi. No crackles. No use of accessory muscles at this time. HEART: S1 and S2 audible. Regular rhythm. GI: Abdomen soft, bulky, nontender. Positive bowel sounds. EXTREMITIES: No edema, cyanosis or clubbing. NEUROLOGIC: Awake, alert, oriented. The patient moves all four extremities. LABORATORY DATA: Sodium 139, potassium 4.1, chloride 111, bicarb 21.9, BUN 15, creatinine 0.78, glucose was 73, calcium 8.5. CPK 178, MB 2.9, troponin-I 0.02, calcium 8.5, magnesium 1.9. White count 8.5, hemoglobin 15.0, hematocrit 43.7, platelet count of 221, MCV 90.4. Valproic acid level 55. IMAGING STUDIES: Chest x-ray was taken and showed normal cardiac mediastinal silhouette. Bony thorax appears intact. No obvious infiltrate or effusion noted. EKG: shows sinus rhythm. No acute ST segment or T-wave changes noted. ASSESSMENT 1. Acute bronchitis, COPD exacerbation. 2. Chronic smoker. 3. Schizoaffective disorder. PLAN The patient is admitted to the hospital for observation. Will put him on oxygen, Rocephin one gram daily. Solu-Medrol 40 milligrams q6 hours. Will start him on anti-tussive. Counseled patient against smoking, to completely abstain from smoking. The hazards of smoking were explained in detail. Antipsychotics, antidepressants including trazodone, Zoloft and Depakote. Pepcid for GI protection, Lovenox for DVT prophylaxis. Further management of this patient will be determined by the hospital course. MD UMAIR Stinson/GLENN /11:37 AM /12:18 PM
[2017-07-30] MEDS: ENOXAPARIN SODIUM 40 MG/0.4 ML SYRINGE SQ SCH (20:06)
[2017-07-30] MEDS: BENZTROPINE MESYLATE 1 MG TAB PO SCH (20:07)
[2017-07-30] MEDS: traZODone HCL 100 MG TAB PO SCH (20:07)
[2017-07-30] MEDS: cefTRIAXone INJ 1,000 MG in SODIUM CHLORIDE 0.9% INJ 100 ML IV SCH (20:07)
[2017-07-30] MEDS: SERTRALINE HCL 50 MG TAB PO SCH (20:07)
[2017-07-30] MEDS: SODIUM CHLORIDE 0.9% FLUSH 10 ML FLUSH IVF PRN ×2 (20:12→23:49)
[2017-07-30] MEDS: DIVALPROEX SODIUM E.R. 500 MG TAB PO SCH (20:22)
[2017-07-31 03:23] VITALS: BP 118/62; PULSE 57; RESP 16; TEMP 98.5; O2SAT 90
[2017-07-31] MEDS: SODIUM CHLORIDE 0.9% FLUSH 10 ML FLUSH IVF PRN (05:47)
[2017-07-31] MEDS: methylPREDNISolone SOD SUCC 40 MG/1 ML VIAL IV PUSH SCH ×2 (05:47→12:38)
[2017-07-31] MEDS: RESP: ALBUTEROL 2.5 MG/IPRATROPIUM 0.5 MG NEB (SCH) NEB ×2 (07:20→11:24)
[2017-07-31 07:46] VITALS: BP 123/64; PULSE 68; RESP 19; TEMP 98.1; O2SAT 90
[2017-07-31] MEDS: UMECLIDINIUM 62.5 MCG/VILANTEROL 25 MCG INHALER INH SCH (09:09)
[2017-07-31] MEDS: BENZONATATE 100 MG CAP PO PRN (09:09)
[2017-07-31] MEDS: FENOFIBRATE 48 MG TAB PO SCH (09:09)
[2017-07-31] MEDS: FAMOTIDINE 20 MG TAB PO SCH (09:09)
[2017-07-31 11:34] VITALS: BP 134/64; PULSE 78; RESP 20; TEMP 98.5; O2SAT 91
--- NOTE | 2017-07-31 12:56 | HHI.PR ---
Subjective Subjective Remarks Dry cough, nonproductive Less short of breath Minimal wheezing No chest pain Anxious to go home States that he's going to quit smoking Review of Systems Constitutional Constitutional Remarks 12 point review of systems completed, negative except as noted above Vitals/Results Vital Signs Vital Signs Date Time Temp Pulse Resp B/P (MAP) Pulse Ox O2 Delivery O2 Flow Rate FiO2 07/31/17 11:34 98.5 78 20 134/64 (87) 91 07/31/17 07:46 98.1 68 19 123/64 (83) 90 07/31/17 03:23 98.5 57 16 118/62 (80) 90 07/30/17 23:47 97.8 61 16 123/64 (83) 90 07/30/17 19:32 98.0 73 18 128/59 (82) 90 07/30/17 19:20 94 21 07/30/17 15:55 98.3 68 21 143/67 (92) 93 07/30/17 13:30 18 CBC/BMP: 07/29/17 1725 07/29/17 1725 Physical Exam General General Appearance: Well Developed, Well Nourished, No Acute Distress, Comfortable Eyes Eye Exam: Pupils Equal, Pupils Reactive Ears & Nose Ears & Nose Exam: Nasal Mucosa [place] Throat Throat Exam: Oral Mucosa [place] & Moist Neck Neck Exam: Neck Supple, Trachea Midline Pulmonary Resp Exam: Breath Sounds Equal, No Distress, Decreased Bases Resp Remarks minimal exp. wheezing Cardiology CV Exam: Regular Gastrointestinal/Abdomen GI Exam: Soft, Non-Tender, Bowel Sounds Present, Non-Distended Musculoskeletal MS Exam: Joints Intact Extremeties Extremities Exam: No Edema, Pedal Pulses Palpable Neurologic Neuro Exam: Alert, Awake, Oriented, Speech Clear, Moving All Extremities, No Focal Deficits Psychiatric Psych Exam: Appropriate Responses VTE Prophylaxis VTE Prophylaxis Device: SCDs Assessment/Plan Assessment/Plan ASSESSMENT 1. Acute bronchitis, COPD exacerbation. 2. Chronic smoker. 3. Schizoaffective disorder. PLAN Continue with DuoNeb's Continue antibiotic IV steroids Antitussives when necessary Tobacco abuse counseling, patient verbalizes understanding and indicates he wants to quit Continue home medications Continue antipsychotics Pepcid for GI protection, Lovenox for DVT prophylaxis. Overall symptoms have improved, no fever Stable for discharge Discharge back to [facility] Follow-up with primary care physician Diet heart healthy Activity as tolerated Counseled patient, needs to abstain from smoking Discussed with RN Discussed with patient Discussed with case management Discussed with attending This patient was seen by myself and Dr. William, this note is written on his behalf Tonya Mckeon Jul 31, 2017 12:56
[2017-07-31] MEDS ORDERED: BENZ100 PO (12:59)
[2017-07-31] MEDS ORDERED: PRED20 PO (13:00)
--- NOTE | 2017-07-31 13:00 | HHI.DCPOC ---
Discharge Care Plan Diagnosis: (1) Bipolar disorder (2) Tobacco abuse (3) COPD exacerbation (4) Asthma exacerbation Your Health Problems Are: Cough Shortness of Breath Goals to Promote Your Health * To prevent worsening of your condition and complications * To maintain your health at the optimal level Directions to Meet Your Goals Take your medications as prescribed Follow your dietary instruction Follow activity as directed Keep your appointments as scheduled Take your immunizations and boosters as scheduled If your symptoms worsen call your PCP, if no PCP go to Urgent Care Center or Emergency Room Smoking is Dangerous to Your Health. Avoid second hand smoke Call the 24-hour hour crisis hotline for domestic abuse at Tonya cMkeon Jul 31, 2017 13:00
[2017-07-31] MEDS ORDERED: PROM6.256 PO (13:08)
[2017-08-12] MEDS ORDERED: HALOPERIDOL DECANOATE 50 MG/ML VIAL IM SCH (09:00)
== END 2017-07-31 14:15 | disposition home or self-care (01) ==
LOC: NEPE 16:58 → NEDA 18:57 → NEPGCP 21:55
PROVIDERS: ADMIT Specialist; ATTEND Specialist
DX: J44.1 Chronic obstructive pulmonary disease with (acute) exacerbation (principal); F25.9 Schizoaffective disorder, unspecified; M19.90 Unspecified osteoarthritis, unspecified site; F31.9 Bipolar disorder, unspecified; K21.9 Gastro-esophageal reflux disease without esophagitis; R51 Headache; F17.210 Nicotine dependence, cigarettes, uncomplicated; Z79.899 Other long term (current) drug therapy; Z23 Encounter for immunization
CPT/HCPCS: 71010; 80048; 80164; 82550; 82552; 83735; 84484; 85025; 90471; 90472; 90686; 90732; 93005; 94640; 94664; 96365; 96372; 96375; 96376; G0008; G0009; G0378; J0696; J1650; J2920; J2930; Q2038

== ENCOUNTER 2017-09-02 22:31 | Emergency (ER) | payer MEDICARE, MEDICAID ==
[~2017-09-02] VITALS: Ht 182.9 cm; Wt 92.0 kg
[~2017-09-02 22:31] MED LIST changes: -BENZ2TAB PO; +MAPA325T PO; -MEDR4PAK PO; +PRED20 PO; +PROM6.256 PO; +TRAZ100T10 PO; -TRAZ100T4 PO; +UMEC1AER INH
[2017-09-02 22:38] VITALS: BP 129/73; PULSE 75; RESP 16; TEMP 98.5; O2SAT 95
--- NOTE | 2017-09-03 00:48 | PD ---
HPI Chief Complaint: Pain: Acute or Chronic Time Seen by Provider: 00:42 Travel History International Travel<30 days: No Contact w/Intl Traveler<30days: No Traveled to known affect area: No History of Present Illness HPI 51-year-old white male presents to emergency Department with complaints of left rib pain after falling getting off the couch 5 days ago. He states that he tripped falling onto the edge of the couch with his left ribs. He does not report any crack or pop. Pain is mild to moderate. Worse with taking a deep breath or coughing. No shortness of breath or wheezing. No abdominal pain. No head or neck injury. PFSH Past Medical History Arthritis: Yes (knees) Asthma: Yes Autoimmune Disease: No Blood Disorders: No Bipolar Disorder: Yes Anxiety: No Depression: No Heart Rhythm Problems: No Cancer: No Cardiovascular Problems: No High Cholesterol: No Chemotherapy: No Chest Pain: No Congestive Heart Failure: No COPD: Yes Cerebrovascular Accident: No Diabetes: No Diminished Hearing: No Endocrine: No Gastrointestinal Disorders: Yes GERD: Yes Genitourinary: Yes (hx of a fatty tumor in groin, it was surgically removed) Headaches: Yes Hiatal Hernia: No Hypertension: Yes (copd and episodes of htn in past) Immune Disorder: No Kidney Stones: No Musculoskeletal: Yes (weakness in legs all the time) Neurologic: Yes (anxiety, weakness in legs, ) Psychiatric: No Reproductive: No Respiratory: Yes (coughs alot, anxiety makes it worse) Migraines: No Radiation Therapy: No Renal Failure: No Schizophrenia: Yes (Schizo Affective) Seizures: No Sickle Cell Disease: No Sleep Apnea: No Thyroid Disease: No Ulcer: No Past Surgical History Abdominal Surgery: No AICD: No Arteriovenous Shunt: No Cardiac Surgery: No Ear Surgery: No Endocrine Surgery: No Eye Surgery: No Genitourinary Surgery: No Gynecologic Surgery: No Insulin Pump: No Joint Replacement: No Oral Surgery: No Pacemaker: No Thoracic Surgery: No Tonsillectomy: Yes Other Surgery: Yes ("fatty tissue removed from scrotum" ) Social History Alcohol Use: Yes (RARE) Tobacco Use: Yes (1 .5 PPD) Substance Use: No Allergies-Medications (Allergen,Severity, Reaction): Coded Allergies: pineapple (Unverified Allergy, Severe, Swelling, 09/02/17) throat mouth and tongue swelling. Reported Meds & Prescriptions Reported Meds & Active Scripts Active Diclofenac Sodium DR (Diclofenac Sodium) 75 Mg Tabdr 75 Mg PO BID Promethazine-Codeine Liq 6.25-10 Mg/5 Ml Syrp 10 Ml PO Q6H PRN 10 Days Prednisone 20 Mg Tab 20 Mg PO DAILY 5 Days Tessalon Perles (Benzonatate) 100 Mg Cap 200 Mg PO TID PRN Reported Mapap (Acetaminophen) 325 Mg Tab 325 Mg PO TID PRN Ventolin Hfa 18 GM Inh (Albuterol Sulfate) 90 Mcg/Act Aer 2 Puff INH Q4-6H PRN Azithromycin 250 Mg Tab 250 Mg PO DIRECTED Take 2 tabs (500 mg) on day 1 then 1 tab daily x 4 days. Trazodone (Trazodone HCl) 100 Mg Tablet 100 Mg PO HS Anoro Ellipta Inh (Umeclidinium/Vilanterol) 62.5-25 Mcg/Act Aero 1 Puff INH DAILY Sertraline (Sertraline HCl) 50 Mg Tab 50 Mg PO HS Haloperidol Decanoate Inj (Haloperidol Decanoate) 100 Mg/Ml Inj 100 Mg IM Q21D Fenofibrate 54 Mg Tab 54 Mg PO DAILY Depakote ER (Divalproex Sodium) 500 Mg Rosio 1,500 PO HS Review of Systems General / Constitutional: No: Fever Eyes: No: Visual changes HENT: No: Headaches Cardiovascular: Positive: Chest Pain or Discomfort Respiratory: Positive: Pleuritic Pain, No: Shortness of Breath Gastrointestinal: No: Nausea, Vomiting, Abdominal Pain Genitourinary: No: Dysuria Musculoskeletal: Positive: Pain, No: Myalgias, Arthralgias, Limited ROM, Edema Skin: No Rash Neurologic: No: Weakness Psychiatric: No: Depression Endocrine: No: Polydipsia Hematologic/Lymphatic: No: Easy Bruising Physical Exam Narrative GENERAL: Well-developed, well-nourished in no apparent distress. Nontoxic appearing. HEAD: Normocephalic, atraumatic. EYES: Pupils equal round and reactive. Extraocular motions intact. No scleral icterus. No injection or drainage. ENT: Nose clear. Throat without erythema, tonsillar hypertrophy or exudate. Uvula midline. Airway patent. NECK: Trachea midline. Supple, nontender, moves head freely. No central bony tenderness or spasm. CARDIOVASCULAR: Regular rate and rhythm without murmurs, gallops, or rubs. CHEST: Mild tenderness to the anterior midaxillary left ribs without deformity or crepitance. No retractions or use of accessory muscles. RESPIRATORY: Clear to auscultation. Breath sounds equal bilaterally. No wheezes , rales, or rhonchi. GASTROINTESTINAL: Abdomen soft, non-tender, nondistended. No hepato-splenomegaly , or palpable masses. No guarding. EXTREMITIES: No clubbing, cyanosis, or edema. No joint tenderness. BACK: Nontender without deformity. No flank tenderness. NEUROLOGICAL: Awake, alert and oriented x 3 .Cranial nerves grossly intact. Motor and sensory grossly within normal limits. Normal speech. Data Data Last Documented VS Vital Signs Date Time Temp Pulse Resp B/P (MAP) Pulse Ox O2 Delivery O2 Flow Rate FiO2 09/02/17 22:38 98.5 75 16 129/73 (91) 95 Room Air Orders Orders Ribs, Uni (W/Exp Cxr-Min 3vw) (09/03/17 00:44) Naproxen (Naprosyn) (09/03/17 01:00) Ed Discharge Order (09/03/17 01:17) MDM Medical Decision Making Medical Screen Exam Complete: Yes Emergency Medical Condition: Yes Medical Record Reviewed: Yes Interpretation(s) Left ribs: Negative for acute bony injury. No pneumothorax. Differential Diagnosis MDM: High Differential diagnoses: Fracture, sprain, strain, dislocation, contusion, neurovascular injury Narrative Course X-rays of left ribs are negative for acute bony injury or pneumothorax. Patient 's given Naprosyn 500 mg by mouth. This is left rib contusion Diagnosis Primary Impression: Contusion of rib on left side Qualified Codes: S20.212A - Contusion of left front wall of thorax, initial encounter Patient Instructions: General Instructions Additional Instructions: Rest. Deep breaths every half hour. Diclofenac. Follow-up with her primary care doctor in 1 week. Return to the ER if any problems. Stop smoking. Med/Other Pt SpecificInfo: Prescription(s) given Scripts Diclofenac Sodium DR (Diclofenac Sodium DR) 75 Mg Tabdr 75 MG PO BID, #20 TAB 0 Refills Prov: Samuel Kwan MD 09/03/17 Disposition: 01 DISCHARGE HOME Condition: Stable Fred Turcios Sep 03, 2017 00:48
[2017-09-03] MEDS ORDERED: DICL75TA PO (00:50)
[2017-09-03] MEDS ORDERED: NAPROXEN 500 MG TAB PO ONE (01:00)
--- NOTE | 2017-09-03 01:23 | RADRPT ---
EXAM DATE/TIME: 09/03/2017 00:53 [facility] COMPARISON: CHEST SINGLE AP, July 29, 2017, 17:35. CHEST SINGLE AP, February 25, 2017, 22:39. INDICATIONS : Pt fell onto left side ribs today. MEDICAL HISTORY : Chronic obstructive pulmonary disease. SURGICAL HISTORY : None. ENCOUNTER: Initial ACUITY: 1 day PAIN SCORE: 7/10 LOCATION: Left chest Ribs FINDINGS: Multiple views of the left ribs were performed. There is no evidence of displaced fracture. No dest ructive lesions or areas of periosteal thickening are seen. Expiratory view of the chest is negative for pneumothorax. The mediastinal structures are midline. CONCLUSION: Left rib series within normal limits. Sadi Angeles MD on September 03, 2017 at 1:20 Board Certified Radiologist. This report was verified electronically.
== END 2017-09-03 09:57 | disposition home or self-care (01) ==
LOC: NEPD 22:31
DX: S20.212A Contusion of left front wall of thorax, initial encounter (principal); J44.9 Chronic obstructive pulmonary disease, unspecified; F20.9 Schizophrenia, unspecified; F31.9 Bipolar disorder, unspecified; M17.0 Bilateral primary osteoarthritis of knee; F17.210 Nicotine dependence, cigarettes, uncomplicated; W08.XXXA Fall from other furniture, initial encounter
CPT/HCPCS: 71101; 99283